=== PATIENT | male | born 1980 | race Caucasian/White ===

== ENCOUNTER → 2016-11-21 | Outpatient (CLI) | payer OTHER | LOC: LAB 10:10 | DX: R30.0 Dysuria (principal) ==

== ENCOUNTER → 2017-02-12 | Outpatient (CLI) | payer MEDICARE, OTHER ==
[2017-02-12 12:11] LABS: HEMOGLOBIN 13.4 gm/dl (14.0-17.5); RED BLOOD COUNT 4.73 M/UL (4.20-5.50)
[2017-02-12 12:47] LABS: BUN/CREATININE RATIO 23 (0-10)
== END ==
LOC: LAB 11:32
PROVIDERS: Nurse Practitioner Primary Care
DX: K21.9 Gastro-esophageal reflux disease without esophagitis (principal); R10.13 Epigastric pain; I10 Essential (primary) hypertension
CPT/HCPCS: 36415; 80053; 80061; 84443; 85025

== ENCOUNTER → 2017-02-28 | Outpatient (CLI) | payer MEDICARE, OTHER ==
[2017-02-28 17:06] LABS: HEMOGLOBIN 14.5 gm/dl (14.0-17.5); RED BLOOD COUNT 4.97 M/UL (4.20-5.50); WHITE BLOOD COUNT 7.9 K/UL (4.5-11.0)
[2017-02-28 17:23] LABS: BUN/CREATININE RATIO 16 (0-10)
== END ==
LOC: LAB 16:13
PROVIDERS: Nurse Practitioner Primary Care
DX: S06.9X0S Unspecified intracranial injury without loss of consciousness, sequela (principal); F06.30 Mood disorder due to known physiological condition, unspecified; R01.1 Cardiac murmur, unspecified; R32 Unspecified urinary incontinence
CPT/HCPCS: 36415; 80053; 80299; 84443; 85027

== ENCOUNTER → 2017-05-20 | Outpatient (CLI) | payer OTHER | LOC: LAB 10:05 | DX: I10 Essential (primary) hypertension (principal) ==

== ENCOUNTER 2021-04-20 10:40 | Emergency (ER) | payer MEDICARE, OTHER ==
[~2021-04-20 10:40] MED LIST: BACTRIM DS TAB1 EACH PO; BACTRIM SUSP (480 ML PO; CLONAZEPAM1 MG PO; COGENTIN PO; COLACE 100MG C100 MG PO; CONCERTA18 MG PO; DESYREL 50 MG T50 MG PO; ENULOSE10 GM/15 M PO; INTUNIV3 MG PO; KEFLEX CAP 500500 MG PO; KEFLEX SUS250 MG/5 M PO; MAGNESIUM400 M2 PO; MIRALAX17 GM PO; NORCO 5-325 TA1 EACH PO; PHENERGAN12.5 MG PR; PROTEIN DRINK PO; PROTONIX40 MG PO; SEROQUEL100 MG PO; SINGULAIR10 MG PO; TRILEPTAL600 MG PO; TYLENOL325 M1 PO; VALIUM10 MG PO; ZOFRAN ODT 4 MG4 MG PO; ZOFRAN4 MG PO; ZOLOFT100 MG PO; ZYRTEC10 MG PO; [UNRECOGNIZED DRUG - OTHER] TD
[2021-04-20 14:56] LABS: HEMOGLOBIN 14.9 gm/dl (14.0-17.5); RED BLOOD COUNT 4.81 M/UL (4.20-5.50); WHITE BLOOD COUNT 14.5 K/UL (4.5-11.0)
[2021-04-20 15:17] LABS: BUN/CREATININE RATIO 19 (0-10)
== END 2021-04-20 21:58 | disposition home or self-care (01) ==
LOC: ER1 10:40
PROVIDERS: Physician Assistant
DX: T18.128A Food in esophagus causing other injury, initial encounter (principal); Z20.822 Contact with and (suspected) exposure to COVID-19
CPT/HCPCS: 70360; 70490; 80053; 85025; 99284; J0330; J2001; J2704; Q9967; U0002

== ENCOUNTER 2021-06-14 16:13 | Emergency (ER) | payer MEDICARE, OTHER ==
[~2021-06-14 16:13] MED LIST changes: -CONCERTA18 MG PO; +CONCERTA36 MG PO; -DESYREL 50 MG T50 MG PO; +TRAZODONE HCL150 MG PO
[2021-06-14] MEDS ORDERED: CENTANY30 GM TP (17:32)
[2021-06-14] MEDS ORDERED: SULFATRIM PEDI473 ML PO (17:32)
[2021-06-14] MEDS ORDERED: KEFLEX SUS250 MG/5 M PO (17:32)
== END 2021-06-14 17:35 | disposition home or self-care (01) ==
LOC: ER1 16:13
DX: J34.0 Abscess, furuncle and carbuncle of nose (principal); K21.9 Gastro-esophageal reflux disease without esophagitis; I10 Essential (primary) hypertension
CPT/HCPCS: 99283

== ENCOUNTER 2021-06-18 10:58 | Inpatient (IN) | payer MEDICARE, OTHER ==
[~2021-06-18] VITALS: Ht 177.8 cm; Wt 44.9 kg
[~2021-06-18 10:58] MED LIST changes: +CENTANY30 GM TP; +SULFATRIM PEDI473 ML PO
[2021-06-18 11:35] LABS: HEMOGLOBIN 13.4 gm/dl (14.0-17.5); RED BLOOD COUNT 4.37 M/UL (4.20-5.50); WHITE BLOOD COUNT 7.4 K/UL (4.5-11.0)
[2021-06-18 11:59] LABS: BUN/CREATININE RATIO 23 (0-10)
[2021-06-18] MEDS ORDERED: OLANZAPINE5 MG PO (15:50)
[2021-06-18] MEDS ORDERED: ONDANSETRON HCL4 MG PO (15:51)
[2021-06-18] MEDS ORDERED: PROMETHAZINE HC25 M1 PO (15:52)
[2021-06-18] MEDS ORDERED: MAGNESIUM CITR296 ML PO (15:54)
[2021-06-18] MEDS ORDERED: TYLENOL EXTRA500 MG PO (15:55)
[2021-06-18] MEDS ORDERED: PROTEIN DRINK PO (15:57)
[2021-06-18] MEDS ORDERED: MUPIROCIN22 GM TP (16:00)
[2021-06-18] MEDS ORDERED: KEFLEX SUS250 MG/5 M PO (16:00)
[2021-06-18] MEDS ORDERED: POLYETHYLENE GL17 GM PO (16:01)
[2021-06-18] MEDS ORDERED: CETIRIZINE HCL10 MG PO (16:03)
[2021-06-18] MEDS ORDERED: SULFAMETHOXAZO473 ML PO (16:03)
[2021-06-18] MEDS ORDERED: CLOTRIMAZOLE-BE30 ML TP (16:05)
[2021-06-18] MEDS ORDERED: BENZTROPINE MESY1 MG PO (16:06)
[2021-06-18] MEDS ORDERED: MONTELUKAST SOD10 MG PO (16:07)
[2021-06-19 08:53] LABS: HEMOGLOBIN 12.9 gm/dl (14.0-17.5); RED BLOOD COUNT 4.3 M/UL (4.20-5.50); WHITE BLOOD COUNT 8.9 K/UL (4.5-11.0)
[2021-06-19 09:14] LABS: BUN/CREATININE RATIO 19 (0-10)
[2021-06-19 11:56] LABS: ACINETOBACTER BAUMANNII Not Detected (Negative); CANDIDA ALBICANS Not Detected (Negative); CANDIDA KRUSEI Not Detected (Negative); CANDIDA TROPICALIS Not Detected (Negative); ENTEROCOCCUS Not Detected (Negative); ESCHERICHIA COLI Not Detected (Negative); HAEMOPHILUS INFLUENZAE Not Detected (Negative); KLEBSIELLA OXYTOCA Not Detected (Negative); KLEBSIELLA PNEUMONIAE Not Detected (Negative); KPC-CARBAPENEM-RESISTANCE GENE Not Detected (Negative); PROTEUS Not Detected (Negative); PSEUDOMONAS AERUGINOSA Not Detected (Negative); SERRATIA MARCESANS Not Detected (Negative); STAPHYLOCOCCUS AUREUS Not Detected (Negative); STREP AGALACTIAE (GROUP B) Not Detected (Negative); STREP PYOGENES (GROUP A) Not Detected (Negative); STREPTOCOCCUS Not Detected (Negative); vanA/B (VANCOMYCIN RESIST GENE Not Detected (Negative)
[2021-06-19 12:50] LABS: STAPHYLOCOCCUS DETECTED (Negative); mecA (METHICILLIN RESIST GENE DETECTED (Negative)
[2021-06-20 10:48] LABS: HEMOGLOBIN 12.3 gm/dl (14.0-17.5); RED BLOOD COUNT 3.97 M/UL (4.20-5.50); WHITE BLOOD COUNT 8.2 K/UL (4.5-11.0)
[2021-06-20 11:46] LABS: BUN/CREATININE RATIO 18 (0-10)
[2021-06-21 05:28] LABS: HEMOGLOBIN 13.2 gm/dl (14.0-17.5); WHITE BLOOD COUNT 8.5 K/UL (4.5-11.0)
[2021-06-21 05:38] LABS: RED BLOOD COUNT 4.37 M/UL (4.20-5.50)
[2021-06-21 05:59] LABS: BUN/CREATININE RATIO 16 (0-10)
[2021-06-21 11:21] LABS: BUN/CREATININE RATIO 13 (0-10)
[2021-06-21] MEDS ORDERED: COLACE 100MG C100 MG PO (13:22)
[2021-06-22 08:32] LABS: RED BLOOD COUNT 4.69 M/UL (4.20-5.50); WHITE BLOOD COUNT 7.6 K/UL (4.5-11.0)
[2021-06-22 08:57] LABS: BUN/CREATININE RATIO 13 (0-10)
[2021-06-23 03:31] LABS: BUN/CREATININE RATIO 18 (0-10)
[2021-06-24 06:58] LABS: HEMOGLOBIN 13.5 gm/dl (14.0-17.5); RED BLOOD COUNT 4.4 M/UL (4.20-5.50)
[2021-06-24 07:02] LABS: WHITE BLOOD COUNT 5.4 K/UL (4.5-11.0)
[2021-06-24 07:25] LABS: BUN/CREATININE RATIO 19 (0-10)
[2021-06-25 09:43] LABS: HEMOGLOBIN 13.7 gm/dl (14.0-17.5); RED BLOOD COUNT 4.43 M/UL (4.20-5.50); WHITE BLOOD COUNT 6.1 K/UL (4.5-11.0)
[2021-06-25 10:09] LABS: BUN/CREATININE RATIO 25 (0-10)
[2021-06-26 11:07] LABS: HEMOGLOBIN 14.5 gm/dl (14.0-17.5); RED BLOOD COUNT 4.75 M/UL (4.20-5.50); WHITE BLOOD COUNT 7.2 K/UL (4.5-11.0)
[2021-06-26 11:42] LABS: BUN/CREATININE RATIO 23 (0-10)
[2021-06-27 05:09] LABS: HBSAG SCREEN Negative (Negative); HEP A AB, IGM Negative (Negative); HEP B CORE AB, IGM Negative (Negative); HEP C VIRUS AB <0.1 (0.0-0.9)
[2021-06-27 09:53] LABS: HEMOGLOBIN 14.1 gm/dl (14.0-17.5); RED BLOOD COUNT 4.57 M/UL (4.20-5.50); WHITE BLOOD COUNT 5.8 K/UL (4.5-11.0)
[2021-06-27 10:21] LABS: BUN/CREATININE RATIO 26 (0-10)
[2021-06-28 07:51] LABS: HEMOGLOBIN 14.2 gm/dl (14.0-17.5); RED BLOOD COUNT 4.76 M/UL (4.20-5.50); WHITE BLOOD COUNT 6.2 K/UL (4.5-11.0)
[2021-06-28 08:15] LABS: BUN/CREATININE RATIO 24 (0-10)
[2021-06-29 09:31] LABS: HEMOGLOBIN 13.9 gm/dl (14.0-17.5); RED BLOOD COUNT 4.52 M/UL (4.20-5.50)
[2021-06-29 10:06] LABS: BUN/CREATININE RATIO 22 (0-10)
[2021-06-30 11:56] LABS: HEMOGLOBIN 13.9 gm/dl (14.0-17.5); RED BLOOD COUNT 4.5 M/UL (4.20-5.50); WHITE BLOOD COUNT 6.1 K/UL (4.5-11.0)
[2021-06-30 12:17] LABS: BUN/CREATININE RATIO 23 (0-10)
[2021-07-01 10:48] LABS: HEMOGLOBIN 14.4 gm/dl (14.0-17.5); RED BLOOD COUNT 4.63 M/UL (4.20-5.50); WHITE BLOOD COUNT 6.3 K/UL (4.5-11.0)
[2021-07-01 11:00] LABS: BUN/CREATININE RATIO 25 (0-10)
[2021-07-02 10:28] LABS: HEMOGLOBIN 14.8 gm/dl (14.0-17.5); RED BLOOD COUNT 4.72 M/UL (4.20-5.50); WHITE BLOOD COUNT 5.5 K/UL (4.5-11.0)
[2021-07-02 10:47] LABS: BUN/CREATININE RATIO 25 (0-10)
[2021-07-03 08:15] LABS: HEMOGLOBIN 14.6 gm/dl (14.0-17.5); RED BLOOD COUNT 4.74 M/UL (4.20-5.50); WHITE BLOOD COUNT 6.8 K/UL (4.5-11.0)
[2021-07-03 08:51] LABS: BUN/CREATININE RATIO 35 (0-10)
--- NOTE | 2021-07-04 08:13 | NUR ---
PATIENT HAD CRITICAL LAB POTASSIUM OF 2.7 THIS AM. REPORTED TO PROVIDER AT [phone]. PATIENT ON POTASSIUM PROTOCOL. PROVIDER ORDERED REPLACEMENT PER PROTOCOL. WILL CONTINUE TO MONITOR.
[2021-07-04 09:03] LABS: RED BLOOD COUNT 4.61 M/UL (4.20-5.50); WHITE BLOOD COUNT 5.9 K/UL (4.5-11.0)
[2021-07-04 09:32] LABS: BUN/CREATININE RATIO 28 (0-10)
[2021-07-05 11:21] LABS: HEMOGLOBIN 14.9 gm/dl (14.0-17.5); RED BLOOD COUNT 4.77 M/UL (4.20-5.50); WHITE BLOOD COUNT 6.2 K/UL (4.5-11.0)
[2021-07-05 11:40] LABS: BUN/CREATININE RATIO 29 (0-10)
[2021-07-06 10:06] LABS: HEMOGLOBIN 14.9 gm/dl (14.0-17.5); RED BLOOD COUNT 4.81 M/UL (4.20-5.50); WHITE BLOOD COUNT 6.4 K/UL (4.5-11.0)
[2021-07-06 10:25] LABS: BUN/CREATININE RATIO 28 (0-10)
[2021-07-07 11:26] LABS: HEMOGLOBIN 15.6 gm/dl (14.0-17.5); RED BLOOD COUNT 4.98 M/UL (4.20-5.50); WHITE BLOOD COUNT 6.6 K/UL (4.5-11.0)
[2021-07-07 12:17] LABS: BUN/CREATININE RATIO 34 (0-10)
[2021-07-08 15:20] LABS: RED BLOOD COUNT 5.1 M/UL (4.20-5.50)
[2021-07-08 15:48] LABS: BUN/CREATININE RATIO 32 (0-10)
[2021-07-09 09:28] LABS: HEMOGLOBIN 14.3 gm/dl (14.0-17.5); RED BLOOD COUNT 4.62 M/UL (4.20-5.50)
[2021-07-09 09:36] LABS: WHITE BLOOD COUNT 5.6 K/UL (4.5-11.0)
[2021-07-09 09:51] LABS: BUN/CREATININE RATIO 29 (0-10)
[2021-07-10 09:26] LABS: HEMOGLOBIN 15.4 gm/dl (14.0-17.5); RED BLOOD COUNT 5.11 M/UL (4.20-5.50); WHITE BLOOD COUNT 6.6 K/UL (4.5-11.0)
[2021-07-10 11:02] LABS: BUN/CREATININE RATIO 26 (0-10)
[2021-07-11 10:09] LABS: HEMOGLOBIN 15.9 gm/dl (14.0-17.5); RED BLOOD COUNT 5.1 M/UL (4.20-5.50); WHITE BLOOD COUNT 7.7 K/UL (4.5-11.0)
[2021-07-11 11:18] LABS: BUN/CREATININE RATIO 25 (0-10)
--- NOTE | 2021-07-11 12:00 | NUR ---
MADE AWARE OF BP[ PRIOR TO D/C. HE STATES THAT IT IS OKAY TO RELEASE PATIENT AT THIS TIME AND PATIENT TO CONTINUE BP MEDS AT HOME PRESCRIBED.
[2021-07-12 11:35] LABS: RED BLOOD COUNT 5.05 M/UL (4.20-5.50); WHITE BLOOD COUNT 8.8 K/UL (4.5-11.0)
[2021-07-12 12:17] LABS: BUN/CREATININE RATIO 30 (0-10)
[2021-07-17 14:34] LABS: HEMOGLOBIN 14.4 gm/dl (14.0-17.5); RED BLOOD COUNT 4.65 M/UL (4.20-5.50)
[2021-07-17 14:57] LABS: BUN/CREATININE RATIO 34 (0-10)
--- NOTE | 2021-07-24 10:13 | NUR ---
07/24/21 0915 WALKING AROUND IN ROOM, SLINGING HIS FIST, PACING AROUND. STRIKING AT STAFF. HARD TO REDIRECT. GUARDS CALLED TO HELP CALM HIM DOWN, THEN PUDDING FED AND HE LAID BACK DOWN. FALL PRECAUTIONS IN USE. SITTER AT BEDSIDE
[2021-07-25 13:24] LABS: HEMOGLOBIN 15.1 gm/dl (14.0-17.5); RED BLOOD COUNT 4.82 M/UL (4.20-5.50); WHITE BLOOD COUNT 9.1 K/UL (4.5-11.0)
[2021-07-25 13:50] LABS: BUN/CREATININE RATIO 29 (0-10)
== END 2021-07-26 02:33 | disposition short-term general hospital (02) | DRG 306 ==
LOC: ER1 10:58 → CDU 14:49 → MED SURG 4 14:49
PROVIDERS: Internal Medicine; Physician Assistant; Student in an Organized Health Care Education/Training Program; ADMIT Internal Medicine
PROC: B24BZZZ Ultrasonography of Heart with Aorta (ICD-10-PCS; principal; 2021-07-20)
DX: I08.1 Rheumatic disorders of both mitral and tricuspid valves (principal); E43 Unspecified severe protein-calorie malnutrition; Z20.822 Contact with and (suspected) exposure to COVID-19; G91.2 (Idiopathic) normal pressure hydrocephalus; Z68.1 Body mass index [BMI] 19.9 or less, adult; I95.89 Other hypotension; E86.0 Dehydration; K21.9 Gastro-esophageal reflux disease without esophagitis; K59.00 Constipation, unspecified; B95.4 Other streptococcus as the cause of diseases classified elsewhere; Z87.820 Personal history of traumatic brain injury; Z93.0 Tracheostomy status; Z93.1 Gastrostomy status; Z82.49 Family history of ischemic heart disease and other diseases of the circulatory system
CPT/HCPCS: ECHO; 36415; 70450; 71045; 74018; 76705; 80048; 80053; 80074; 80202; 82150; 82550; 82553; 83605; 83690; 83735; 83874; 84484; 85025; 85027; 87040; 87077; 87150; 87186; 92610; 93005; 93306; 99285; J1630; J1650; J2060; J3370; J7030; J7070; U0002